=== PATIENT | male | born 1955 | race Caucasian/White ===

== ENCOUNTER → 2017-05-21 | Day surgery (SDC) | payer OTHER ==
[~2017-05-21] VITALS: Ht 182.9 cm; Wt 122.5 kg
--- NOTE | 2017-05-21 08:52 | Operative Report ---
Operative/Inv Procedure Report Surgery Date: 05/21/17 Name of Procedure: Microlaryngoscopy with laser excision of vocal cord lesion, right Pre-Operative Diagnosis: Vocal cord lesion, right Post-Operative Diagnosis: Same Estimated Blood Loss: scant Surgeon/Ip/Mosaic Technician: Lyly Clemens MD Anesthesia: general endotracheal tube (laser tube#6) Specimens: Vocal cord lesion, right Complications: Non- Condition: Stable on leaving the OR Operative Indication: Vocal cord lesion, right Hoarseness Operative/Procedure Note Note: Patient was brought to the operating room. Placed on the operating table in supine position. First timeout was performed including patient's name, ID number and planned procedure. Then general oroendotracheal anesthesia was induced. Laser tube was used and it was secured with tape over the left lip commissure. Next patient was positioned for microlaryngoscopy. Operating room table was rotated 90 away from the anesthesia team toward patient's right. Head was sterilely draped. Anterior commissure laryngoscope was then used and laryngoscopy was performed. A dental guard was used for protection of the upper teeth. Anterior commissure laryngoscope was then used and laryngoscopy was performed. The anterior commissure laryngoscope was introduced into the oral cavity, oropharynx, hypopharynx and larynx. Examination of the larynx and hypopharynx was then carried. Base of tongue, valleculae appeared to be clear both right and left piriform sinuses were clear. Epiglottis over the lingual and laryngeal surfaces was clear. Aryepiglottic folds were intact. Glottis was visualized. Left vocal cord was clear. Right vocal cord at the anterior aspect had exophytic cystic-like lesion attached to the vocal cord on the rather broad pedicle. Laryngoscope was fixed in place with an suspension arm and the microscope and dye filled laser were connected. Laser was set on a power of 2 gross, 12 Neel, 400 fiber continuous mode. At first the lesion was grasped with Halina forceps and excised with scissors. This followed by optic location of the laser to control the bleeding and to remove additional edges of the lesion until all vocal cord appeared to be completely clear of the lesion. At the end of the procedure there was no bleeding. The procedure was completed. Microscope and laser were detached Laryngoscope was dismounted from the suspension apparatus and removed. Surgery was completed. Stomach was suctioned with an OG tube. The patient was reawakened, extubated and taken to the recovery room in good condition. There were no complications. Estimated blood loss was minimal. Findings: Right vocal cord, anterior one thirdcyst like lesion on a rather broad pedicle, 3 x 5 mm Discharge Disposition: PACU
== END ==
LOC: STS 03:26
DX: J38.2 Nodules of vocal cords (principal); R49.0 Dysphonia; I10 Essential (primary) hypertension; K21.0 Gastro-esophageal reflux disease with esophagitis; M19.90 Unspecified osteoarthritis, unspecified site
CPT/HCPCS: C9399; J0171; J0690; J1100; J2250; J2405